=== PATIENT | male | born 1995 | race Caucasian/White ===

== ENCOUNTER 2016-07-27 19:47 | Emergency (ER) | payer OTHER ==
[2016-07-27 20:04] VITALS: TEMP 98.2
--- NOTE | 2016-07-27 21:11 | EDPHY ---
H & P Time Seen by Provider: 07/27/16 20:18 HPI/ROS: CHIEF COMPLAINT: scalp laceration HISTORY OF PRESENT ILLNESS: 21-year-old male presents emergency department with a laceration to the back of his head. Patient fell off his skateboard and struck his head on the concrete. He denies loss of consciousness, remembers the entire accident, no neck pain. Patient reports tetanus is up-to-date, he denies nausea, vomiting, confusion or blurred vision. Smoking Status: Current some day smoker Physical Exam: GEN: Awake, alert, oriented, no acute distress RESP: nl resp effort MSK: No C-spine tenderness to palpation Neuro: Neurologically grossly intact SKIN: 4 cm stellate laceration to posterior occiput Constitutional: Initial Vital Signs Temperature (C) 36.8 C 07/27/16 19:59 Heart Rate 105 H 07/27/16 19:59 Respiratory Rate 18 07/27/16 19:59 Blood Pressure 134/82 H 07/27/16 19:59 O2 Sat (%) 94 07/27/16 19:59 O2 Delivery Mode Room Air Allergies/Adverse Reactions: No Known Allergies Allergy (Unverified 07/27/16 19:58) Home Medications: Medication Instructions Recorded Adderall 30 mg Tablet 07/27/16 MDM/Departure - MDM Procedures: Procedure: Laceration repair. Verbal consent was obtained from the patient. The 4 cm stellate laceration on the posterior occiput was anesthetized using 1% lidocaine with epinephrine. The wound was carefully irrigated by the emergency department photocopier technician. Next, the wound was prepped and draped in sterile fashion and explored to its base with a gloved finger. There were no deep structures involved. No vascular injury was identified. No foreign bodies were identified. The wound was repaired with 9 neo. The wound repair was simple. The procedure was performed by myself. Tetanus and antibiotic status were addressed. - Depart Disposition: Home, Routine, Self-Care Clinical Impression: Scalp laceration Qualifiers: Encounter type: initial encounter Qualified Code(s): S01.01XA - Laceration without foreign body of scalp, initial encounter Minor head injury without loss of consciousness Qualifiers: Encounter type: initial encounter Qualified Code(s): S09.90XA - Unspecified injury of head, initial encounter Condition: Good Instructions: Laceration (ED), Head Injury (ED) Additional Instructions: Return to the emergency department in 7 days for staple removal, return sooner for any signs of a head injury, forceful vomiting, confusion, altered gait, any other questions or concerns. Referrals: [facility] [Outside] - As per Instructions
[2016-07-27 21:19] VITALS: BP 128/65; PULSE 79; RESP 16; O2SAT 97
== END 2016-07-27 21:20 | disposition home or self-care (01) ==
PROC: 0HQ0XZZ Repair Scalp Skin, External Approach (ICD-10-PCS; principal; 2016-07-27)
DX: S01.01XA Laceration without foreign body of scalp, initial encounter (principal); F17.200 Nicotine dependence, unspecified, uncomplicated; V00.131A Fall from skateboard, initial encounter; Y99.8 Other external cause status; Y93.51 Activity, roller skating (inline) and skateboarding

== ENCOUNTER 2017-08-12 09:58 | Emergency (ER) | payer MEDICAID, OTHER ==
[2017-08-12 10:09] VITALS: TEMP 98.6
[2017-08-12] MEDS ORDERED: KETOROLAC 30 MG/1 ML SDV IM ONE (10:27)
--- NOTE | 2017-08-12 10:32 | EDPHY ---
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 Patient was in a lifting and twisting motion. O'Brien a sudden onset of spasm. Did not sustain any dramatic traumatic injuries. No falls. He has been ambulating with discomfort. No difficulty urinating or having a bowel movement. No prior history of back pain in the past. No new numbness or weakness. ROS: 10 point Review of Systems is negative except as noted in the HPI. PMH: Denies Social History: No smoking, no alcohol, no recreational drug use Family History: non-contributory Physical Exam: Gen: Awake, Alert, No Distress HEENT: Nose: no rhinorrhea Eyes: PERRLA, EOMI Mouth: Moist mucosa Neck: Supple, no JVD Chest: nontender, lungs clear to auscultation Heart: S1, S2 normal, no murmur Abd: Soft, non-tender, no guarding Back: no CVA tenderness, no midline tenderness Ext: no edema, non-tender Skin: no rash Neuro: CN II-XII intact, Sensation grossly intact, Strength 5/5 in bilateral upper and lower extremities - Personal History Current Tetanus/Diphtheria Vaccine: Unsure Current Tetanus Diphtheria and Acellular Pertussis (TDAP): Unsure - Medical/Surgical History Hx Asthma: No Hx Chronic Respiratory Disease: No Hx Diabetes: No Hx Cardiac Disease: No Hx Renal Disease: No Hx Cirrhosis: No Hx Alcoholism: No Hx HIV/AIDS: No Hx Splenectomy or Spleen Trauma: No Other PMH: denies - Social History Smoking Status: Current some day smoker Constitutional: Initial Vital Signs Temperature (C) 37.0 C 08/12/17 10:07 Heart Rate 90 08/12/17 10:07 Respiratory Rate 26 H 08/12/17 10:07 Blood Pressure 156/110 H 08/12/17 10:07 O2 Sat (%) 100 08/12/17 10:07 O2 Delivery Mode Room Air Allergies/Adverse Reactions: No Known Allergies Allergy (Verified 08/12/17 10:06) Home Medications: Medication Instructions Recorded Adderall 30 mg Tablet 07/27/16 Medical Decision Making ED Course/Re-evaluation: 22-year-old male with musculoskeletal back strain. He is improved after ibuprofen and ice. He is completely neurologically intact. This was not a traumatic injury. There are no red flags for acute spinal injury or infection. Will discharge with usual back pain instructions, Lidoderm patch. 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 - Data Points Medications Given: Discontinued Medications Ketorolac Tromethamine (Toradol) 60 mg IM EDNOW ONE Stop: 08/12/17 10:28 Last Admin: 08/12/17 10:32 Dose: 60 mg Departure - Departure Disposition: Home, Routine, Self-Care Clinical Impression: Back pain Condition: Good Instructions: Low Back Strain (ED), Lower Back Exercises (ED) Additional Instructions: Take ibuprofen, 600 mg, 3 times a day. You may also take acetaminophen, 1000 mg every 6 hours. You may replace the Lidoderm patch every 24 hr, these are available over-the- counter Make sure to remain active. Did do not lay in bed or sit in a chair for long periods. It is important to remain active and keep your back moving in order to improve. Please see the attached back exercise instructions. Follow up at [email or web address] in 3-4 days for further evaluation. Referrals: [facility],. [Clinic] - As per Instructions
[2017-08-12 11:44] VITALS: BP 119/75; PULSE 77; RESP 16; O2SAT 95
[2017-08-12] MEDS ORDERED: LIDOCAINE 4%/MENTHOL 1% PATCH TD ONE (11:46)
[2017-08-12] MEDS ORDERED: PATCH REMOVAL 1 EA PATCH TD SCH (21:00)
== END 2017-08-12 11:51 | disposition home or self-care (01) ==
DX: M54.9 Dorsalgia, unspecified (principal); F17.200 Nicotine dependence, unspecified, uncomplicated
CPT/HCPCS: J1885